=== PATIENT | female | born 1950 | race Caucasian/White ===

== ENCOUNTER → 2016-09-18 | Outpatient (CLI) | payer MEDICARE, OTHER ==
[~2016-09-18] MED LIST: ACET125T2 PO; CLOB5CR TOP; DORZ2SOL5 OS; ESTR62CR PV; NORC1TAB4 PO; OSCA200T PO; SALI0.653; TIMO5OPD OD; TRAV0.006 OU; VITMTA PO
--- NOTE | 2016-09-18 09:11 | REPMRS ---
Patient History The patient states she had a clinical breast exam in 08/13 Patient is postmenopausal and is nulliparous. Family history of prostate cancer in father at age 90, breast cancer in mother at age 82, and breast cancer in paternal grandmother under age 50. Benign excisional biopsy of the right breast, 1997. Took hormonal contraceptives for 2 months. Taking unspecified hormones for 12 years. Digital Woman Screen Mammo: September 18, 2016 - Exam #: [id number] Bilateral CC and MLO view(s) were taken. Technologist: Kassidy Whittington, Technologist Prior study comparison: September 14, 2015, digital woman screen mammo performed at [facility]. September 11, 2014, digital woman screen mammo performed at [facility]. FINDINGS: The breast tissue is heterogeneously dense. This may lower the sensitivity of mammography. There has been no change in the appearance of the mammogram from the prior studies. There is a moderate amount of residual fibroglandular tissue which is fairly symmetric. There is no interval development of dominant mass, areas of architectural distortion, or clustered microcalcification typical of malignancy. ASSESSMENT: BI-RADS/ACR category 1 mammogram. Negative. Recommendation Routine screening mammogram in 1 year (for women over age 40). This mammogram was interpreted with the aid of an FDA-approved computer-aided dectection system. Electronically Signed By: Adam Bhandari MD 09/18/16 0911
== END ==
LOC: M WHC 07:52
PROVIDERS: ATTEND Physician Assistant
DX: Z12.31 Encounter for screening mammogram for malignant neoplasm of breast (principal); R92.8 Other abnormal and inconclusive findings on diagnostic imaging of breast; Z78.0 Asymptomatic menopausal state; Z80.0 Family history of malignant neoplasm of digestive organs; Z92.0 Personal history of contraception

== ENCOUNTER → 2017-09-21 | Outpatient (CLI) | payer MEDICARE, OTHER | LOC: M WHC 07:49 | DX: Z12.31 Encounter for screening mammogram for malignant neoplasm of breast (principal); Z78.0 Asymptomatic menopausal state; Z80.3 Family history of malignant neoplasm of breast | CPT/HCPCS: 77067 ==

== ENCOUNTER → 2017-12-16 | Outpatient (REF) | payer MEDICARE, OTHER | LOC: M LAB REF 17:09 | DX: B35.3 Tinea pedis (principal) | CPT/HCPCS: 87101 ==

== ENCOUNTER → 2018-08-11 | Outpatient (REF) | payer MEDICARE, OTHER ==
[~2018-08-11] MED LIST changes: -NORC1TAB4 PO; +NORC1TAB7 PO; +SALI0.6528; -SALI0.653
== END ==
LOC: M SFHCWAGY 11:11
PROVIDERS: ATTEND Nurse Practitioner Family
DX: Z12.4 Encounter for screening for malignant neoplasm of cervix (principal); N88.0 Leukoplakia of cervix uteri
CPT/HCPCS: G0101; G0123

== ENCOUNTER → 2018-09-14 | Outpatient (CLI) | payer MEDICARE, OTHER ==
--- NOTE | 2018-09-14 09:17 | REPMRS ---
Patient History The patient states she had a clinical breast exam in 07/2018. Patient is postmenopausal and is nulliparous. Family history of breast cancer under age 50 in paternal grandmother, breast cancer at age 82 in mother, prostate cancer at age 90 in father. Benign excisional biopsy of the right breast, 1997. Took hormonal contraceptives for 2 months. Took unspecified hormones for 14 years. 3D TOMOSYNTHESIS WAS PERFORMED. The [facility] lifetime risk for breast cancer is 18.2%. Digital Woman Screen Mammo: September 14, 2018 - Exam #: [id number] Bilateral CC and MLO view(s) were taken. Technologist: Kassidy Whittington, Technologist Prior study comparison: September 21, 2017, bilateral digital woman screen mammo performed at [facility]. September 18, 2016, digital woman screen mammo performed at [facility]. FINDINGS: The breast tissue is heterogeneously dense. This may lower the sensitivity of mammography. There has been no change in the appearance of the mammogram from the prior studies. There is a moderate amount of residual fibroglandular tissue which is fairly symmetric. There is no interval development of dominant mass, areas of architectural distortion, or clustered microcalcification typical of malignancy. Assessment: BI-RADS/ACR category 1 mammogram. Negative Mammogram. Recommendation Routine screening mammogram in 1 year (for women over age 40). This mammogram was interpreted with the aid of an FDA-approved computer-aided dectection system. Electronically Signed By: Adam Bhandari MD 09/14/18 0916
--- NOTE | 2018-09-21 09:36 | DEXA ---
AP SPINE L1 - L4 0.922 -2.1 -0.5 LT FEMUR TOTAL 0.860 -1.2 0.1 LT NECK 0.868 -1.2 0.3 RT FEMUR TOTAL 0.886 -1.0 0.3 RT NECK 0.884 -1.1 0.4 TOTAL BODY TOTAL OTHER COMMENTS: There is low bone density of the spine and hips. The decreased density of the spine does represent a significant change. The decreased density of the left hip does not represent a significant change. The decreased density of the right hip does represent a significant change. The density of the spine has decreased 10.3% since the initial exam on 03/16/2007. The spine density has decreased 7.2% since the most recent exam on 08/30/2014. The density of the left hip has decreased 9.6% since the initial exam on 03/16/2007. The density of the left hip has decreased 1.7% since the most recent exam on 08/30/2014. The density of the right hip has decreased 8.8% since the initial exam on 03/16/2007. The density of the right hip has decreased 3.7% since the most recent exam on 08/30/2014. FOLLOW-UP: Recommendation for the next bone density exam: 2 years. LEANN
== END ==
LOC: M WHC 08:04
PROVIDERS: ATTEND Nurse Practitioner Family
DX: Z12.31 Encounter for screening mammogram for malignant neoplasm of breast (principal); M85.80 Other specified disorders of bone density and structure, unspecified site; Z80.3 Family history of malignant neoplasm of breast; Z78.0 Asymptomatic menopausal state; R92.2 Inconclusive mammogram

== ENCOUNTER → 2019-09-15 | Outpatient (CLI) | payer MEDICARE, OTHER ==
--- NOTE | 2019-09-15 11:03 | REPMRS ---
Patient History Family history of breast cancer under age 50 in paternal grandmother, breast cancer at age 82 in mother, prostate cancer at age 90 in father. Benign excisional biopsy of the right breast, 1997. Took hormonal contraceptives for 2 months. Took unspecified hormones for 14 years. Digital Woman Screen Mammo: September 15, 2019 - Exam #: [id number] Bilateral CC and MLO view(s) were taken. Technologist: Giovana Simms, Technologist Prior study comparison: September 14, 2018, bilateral digital woman screen mammo performed at [facility]. September 21, 2017, bilateral digital woman screen mammo performed at [facility]. September 18, 2016, digital woman screen mammo performed at [facility]. FINDINGS: There are scattered fibroglandular densities. The Volpara volumetric breast density category is:B. There has been no change in the appearance of the mammogram from the prior studies. There is a mild amount of scattered fibroglandular density which is fairly symmetric. There is no interval development of dominant mass, architectural distortion, or grouped microcalcification suggestive of malignancy. 3-D tomosynthesis shows no additional findings. Assessment: BI-RADS/ACR category 1 mammogram. Negative Mammogram. Recommendation Routine screening mammogram of both breasts in 1 year (for women over age 40). This patient's Lifetime Breast Cancer Risk is estimated at 17. 3 %. This mammogram was interpreted with the aid of an FDA-approved computer-aided dectection system. Electronically Signed By: Dav Rivera MD 09/15/19 4619
== END ==
LOC: M WHC 08:03
PROVIDERS: ATTEND Nurse Practitioner Family
DX: Z01.411 Encounter for gynecological examination (general) (routine) with abnormal findings (principal); Z12.31 Encounter for screening mammogram for malignant neoplasm of breast; Z80.3 Family history of malignant neoplasm of breast; Z80.42 Family history of malignant neoplasm of prostate; Z86.018 Personal history of other benign neoplasm; Z92.0 Personal history of contraception; Z92.29 Personal history of other drug therapy
CPT/HCPCS: 77063; 77067; G0101

== ENCOUNTER → 2020-10-02 | Outpatient (CLI) | payer MEDICARE, OTHER ==
--- NOTE | 2020-10-02 15:07 | REP ---
INDICATION: CHRONIC STEVENSON SINIUSITIS. COMPARISON: Comparison maxillofacial CT study October 12, 2015.. TECHNIQUE: Helical scanning is acquired and 2 mm axial images re-formatted. Coronal MPR images are generated and reviewed. FINDINGS: Patient is status post nasal antral window/uncinectomy procedures bilaterally. Widely patent nasal antral windows are seen. The middle turbinates and are resected bilaterally and bilateral ethmoid bullectomy is been performed. Prior study from 2015 showed moderate residual mucosal thickening changes in the right maxillary sinus which have largely resolved. There are minimal mucosal thickening changes in the inferior wall the left maxillary sinus and in the left side of the sphenoid sinus. There are mild mucosal changes in the anterior ethmoid air cells on the left. Minimal mucosal changes are seen in the inferior aspect of the left frontal sinus. No bony destructive lesion is seen. Mastoid aeration is normal and symmetric. There is a focal calcification or possibly a metallic density along the scleral margin of the left ocular globe in the left orbit. This is a new finding compared with the October 12, 2015 study. Ocular foreign body is suspected. This measures approximately 2.6 mm in greatest diameter on sagittal MPR images. The visualized intracranial and deep facial soft tissues are unremarkable. IMPRESSION: 1. Possible metallic ocular foreign body left orbit along the scleral margin anteriorly superior to the level of the ocular lens. 2. Status post bilateral uncinectomy, middle turbinectomy, and bilateral ethmoid bullectomy. Mucosal changes are minimal and improved from the 2016 prior study. <Electronically signed by Dav Rivera > 10/02/20 2141
== END ==
LOC: M RAD 14:18
PROVIDERS: ATTEND Otolaryngology
DX: J32.4 Chronic pansinusitis (principal)

== ENCOUNTER → 2020-11-08 | Outpatient (CLI) | payer MEDICARE, OTHER ==
--- NOTE | 2020-11-08 11:04 | REPMRS ---
Patient History The patient states she had a clinical breast exam in October 2020. Family history of breast cancer under age 50 in paternal grandmother, breast cancer at age 82 in mother, prostate cancer at age 90 in father. Benign excisional biopsy of the right breast, 1997. Took hormonal contraceptives for 2 months. Took unspecified hormones for 14 years. Patient states no breast complaints today. Patient has signed MRS History Sheet. Digital Woman Screen Mammo: November 08, 2020 - Exam #: [id number] Bilateral CC and MLO view(s) were taken. Technologist: Lynsey Weir, Technologist Prior study comparison: September 15, 2019, bilateral digital woman screen mammo performed at [facility]. September 14, 2018, bilateral digital woman screen mammo performed at [facility]. September 21, 2017, bilateral digital woman screen mammo performed at [facility]. FINDINGS: There are scattered fibroglandular densities. The Volpara volumetric breast density category is:B. There has been no change in the appearance of the mammogram from the prior studies. There is a mild amount of scattered fibroglandular density which is fairly symmetric. There is no interval development of dominant mass, architectural distortion, or grouped microcalcification suggestive of malignancy. 3-D tomosynthesis shows no additional findings. Assessment: BI-RADS/ACR category 1 mammogram. Negative Mammogram. Recommendation Routine screening mammogram of both breasts in 1 year (for women over age 40). This patient's [facility] Lifetime Breast Cancer Risk is estimated at 16.4 %. This mammogram was interpreted with the aid of an FDA-approved computer-aided dectection system. Electronically Signed By: Dav Rivera MD 11/08/20 0181
== END ==
LOC: M WHC 09:27
PROVIDERS: ATTEND Advanced Practice Midwife
DX: Z01.419 Encounter for gynecological examination (general) (routine) without abnormal findings (principal); Z12.31 Encounter for screening mammogram for malignant neoplasm of breast; Z80.3 Family history of malignant neoplasm of breast; Z86.018 Personal history of other benign neoplasm; Z92.0 Personal history of contraception; Z92.29 Personal history of other drug therapy
CPT/HCPCS: 77063; 77067; G0101

== ENCOUNTER → 2020-11-27 | Outpatient (CLI) | payer MEDICARE, OTHER | LOC: M WHC 10:22 | PROVIDERS: ATTEND Advanced Practice Midwife | DX: M85.88 Other specified disorders of bone density and structure, other site (principal); Z13.820 Encounter for screening for osteoporosis ==

== ENCOUNTER → 2021-11-14 | Outpatient (CLI) | payer MEDICARE, OTHER | LOC: M WHC 08:59 | PROVIDERS: ATTEND Advanced Practice Midwife | DX: Z12.31 Encounter for screening mammogram for malignant neoplasm of breast (principal) ==

== ENCOUNTER → 2023-01-20 | Outpatient (CLI) | payer MEDICARE, OTHER | LOC: M PLAIMG 10:27 | PROVIDERS: ATTEND Otolaryngology | DX: J32.0 Chronic maxillary sinusitis (principal) ==

== ENCOUNTER → 2023-02-12 | Outpatient (CLI) | payer MEDICARE, OTHER | LOC: M WHC 10:11 | PROVIDERS: ATTEND Advanced Practice Midwife | DX: Z12.31 Encounter for screening mammogram for malignant neoplasm of breast (principal) ==

== ENCOUNTER → 2023-09-02 | Outpatient (REF) | payer MEDICARE, OTHER | LOC: M LAB REF 17:21 | PROVIDERS: ATTEND Physician Assistant Medical | DX: J32.0 Chronic maxillary sinusitis (principal) ==

== ENCOUNTER → 2024-02-17 | Outpatient (CLI) | payer MEDICARE, OTHER | LOC: M WHC 09:17 | PROVIDERS: ATTEND Advanced Practice Midwife | DX: Z12.31 Encounter for screening mammogram for malignant neoplasm of breast (principal); R92.333 Mammographic heterogeneous density, bilateral breasts; Z13.820 Encounter for screening for osteoporosis; M85.88 Other specified disorders of bone density and structure, other site; M85.851 Other specified disorders of bone density and structure, right thigh; M85.852 Other specified disorders of bone density and structure, left thigh ==

== ENCOUNTER → 2024-02-17 | Outpatient (CLI) | payer MEDICARE, OTHER | LOC: M WHC 09:17 | PROVIDERS: ATTEND Advanced Practice Midwife | DX: M85.88 Other specified disorders of bone density and structure, other site (principal); M85.851 Other specified disorders of bone density and structure, right thigh; M85.852 Other specified disorders of bone density and structure, left thigh; Z13.820 Encounter for screening for osteoporosis; Z12.31 Encounter for screening mammogram for malignant neoplasm of breast; R92.333 Mammographic heterogeneous density, bilateral breasts ==

== ENCOUNTER → 2025-03-02 | Outpatient (CLI) | payer MEDICARE, OTHER ==
[~2025-03-02] MED LIST changes: +AMLO2.5T3 PO; +ARTIDRO4 OP; +BRIM5DRO25 OS; +CALC600C3 PO; +ESTR1CRE TOP; +FLON1SPR; +META28.32 PO; +PREDOPD OS; +PROBCAP14 PO; +TIMO0.5S20 OS; +TRAV04OPD OU
== END ==
LOC: M WHC 09:10
PROVIDERS: ATTEND Advanced Practice Midwife
DX: Z12.31 Encounter for screening mammogram for malignant neoplasm of breast (principal); R92.323 Mammographic fibroglandular density, bilateral breasts

== ENCOUNTER 2025-03-24 07:48 | Day surgery (SDC) | payer MEDICARE, OTHER ==
[~2025-03-24] VITALS: Ht 165.1 cm; Wt 61.0 kg
[2025-03-24] MEDS: LR 1,000 ML IV SCH (08:15)
[2025-03-24] MEDS ORDERED: dexAMETHasone 4 MG/ML 1 ML VIAL As Ordered ONE (08:56)
[2025-03-24] MEDS ORDERED: MIDAZOLAM INJ 2 MG/2 ML VIAL As Ordered ONE (08:56)
[2025-03-24] MEDS ORDERED: ONDANSETRON 4MG/2ML VIAL As Ordered ONE (08:56)
[2025-03-24] MEDS ORDERED: LIDOCAINE 2% 100 MG/5 ML SDV (FOR ANES.) As Ordered ONE (08:56)
[2025-03-24] MEDS ORDERED: ROCURONIUM BROMIDE 50MG/5ML VIAL As Ordered ONE (08:56)
[2025-03-24] MEDS ORDERED: dexmedeTOMIDine (4 MCG/ML) 200 MCG/50 ML BTL As Ordered ONE (08:57)
[2025-03-24] MEDS: LIDOCAINE W/EPINEPHrine 1% 20 ML VIAL As Ordered ONE (09:17)
[2025-03-24] MEDS: SCOPOLAMINE 1MG TRANSDERMAL PATCH TOP ONE (09:30)
[2025-03-24] MEDS ORDERED: LIDOCAINE 5% OINT 30 GM TUBE As Ordered ONE (09:34)
[2025-03-24] MEDS: dexAMETHasone 4 MG/ML 1 ML VIAL IV ONE (10:10)
[2025-03-24] MEDS: OXYMETAZOLINE 0.05% NASAL SPRAY As Ordered ONE (10:47)
[2025-03-24] MEDS ORDERED: LACRILUBE (AKWA TEARS) OPHTH OINT 3.5 GM As Ordered ONE (11:03)
[2025-03-24] MEDS ORDERED: PHENYLephrine 500MCG 5ML (100MCG/ML) SYRINGE As Ordered ONE (11:03)
[2025-03-24] MEDS ORDERED: ACETAMINOPHEN 1000MG/100ML IV BAG As Ordered ONE (11:25)
[2025-03-24] MEDS ORDERED: SUGAMMADEX SODIUM 200 MG/2 ML VIAL As Ordered ONE (11:25)
[2025-03-24] MEDS ORDERED: LABETALOL 100 MG/20 ML VIAL As Ordered ONE (11:28)
[2025-03-24] MEDS: SILVER NITRATE APPLICATOR (1 = QTY 10) As Ordered ONE (11:30)
[2025-03-24] MEDS: metroNIDAZOLE/NACL 500 MG (5 MG/ML) 100 ML BAG As Ordered ONE (11:40)
[2025-03-24] MEDS ORDERED: ONDANSETRON 4MG/2ML VIAL IV PRN (11:50)
[2025-03-24] MEDS ORDERED: HYDROMORPHONE HCL 0.5 MG/0.5 ML SYRINGE IV PRN (11:50)
[2025-03-24] MEDS ORDERED: MORPHINE 2 MG/ML 1 ML VIAL IV PRN (11:50)
[2025-03-24 13:50] VITALS: BP 131/69; O2SAT 97
== END 2025-03-24 13:50 | disposition home or self-care (01) ==
LOC: M SDC 07:48
PROVIDERS: ATTEND Otolaryngology
DX: K13.21 Leukoplakia of oral mucosa, including tongue (principal); I10 Essential (primary) hypertension; Z79.899 Other long term (current) drug therapy; Z88.8 Allergy status to other drugs, medicaments and biological substances; Z90.5 Acquired absence of kidney
CPT/HCPCS: 41110; 41116; 93005; J0131; J0690; J1100; J1836; J1920; J2250; J2371; J2405; J3010